=== PATIENT | female | born 1985 | race Caucasian/White ===

== ENCOUNTER 2017-04-16 02:45 | Emergency (ER) | payer OTHER ==
[~2017-04-16] VITALS: Ht 162.6 cm; Wt 80.1 kg
[~2017-04-16 02:45] MED LIST: AUGMENTIN875 MG PO
[2017-04-16 03:56] LABS: HEMATOCRIT 39.6 % (36.0-46.0); MCH 29.8 PG (29.0-34.0); MCHC 33.8 G/DL (30.0-36.0); MEAN PLAT.VOLUME 9.8 uM^3 (9.5-12.4); PLATELET COUNT 213 K/uL (156-360); RBC DIS.WIDTH-CV 12.5 % (11.8-14.6); RBC DIS.WIDTH-SD 40.8 % (39-53); WHITE BLOOD COUNT 7.4 K/uL (4.1-10.2)
[2017-04-16 04:29] LABS: CHLORIDE 104 mEq/L (99-109); SODIUM 139 mEq/L (136-147)
[2017-04-16 04:32] LABS: GLUCOSE 100 mg/dL (70-99)
[2017-04-16 04:33] LABS: ANION GAP 11 MEQ/L (2-14)
[2017-04-16 04:34] LABS: TOTAL BILIRUBIN 0.3 mg/dL (0.0-1.0)
[2017-04-16 04:35] LABS: ALKALINE PHOSPHATASE 91 IU/L (3-129); GFR ESTIMATE (CALCULATED) > 59 mL/min/
[2017-04-16 04:36] LABS: UREA NITROGEN (BUN) 11 mg/dL (9-23)
[2017-04-16 04:37] LABS: TROP-I INTERPRETATION NEGATIVE; TROPONIN-I 0.01 ng/mL (0.0-0.30)
[2017-04-16 04:38] LABS: CREATINE KINASE 272 IU/L (1-294); TOTAL CK 272 IU/L (1-294)
[2017-04-16 04:46] LABS: QUANTITATIVE HCG < 4.0 MIU/ML
[2017-04-16 04:47] LABS: CK-MB 1.6 ng/mL (0.0-4.9)
[2017-04-16] MEDS ORDERED: RIZATRIPTAN5 M1 PO (04:58)
[2017-04-16 05:18] LABS: LIPASE 15 U/L (1.0-51.0)
[2017-04-16 05:22] VITALS: BP 122/90
== END 2017-04-16 05:23 | disposition home or self-care (01) ==
LOC: EME 02:45
PROVIDERS: Emergency Medicine
DX: R51 Headache (principal); M79.1 Myalgia; M79.601 Pain in right arm; R10.9 Unspecified abdominal pain; R07.89 Other chest pain; R11.0 Nausea
CPT/HCPCS: 71020; 80053; 81003; 82550; 82553; 83690; 84484; 84702; 85027; 93005; 99281; 99283